=== PATIENT | female | born 1995 | race Caucasian/White ===

== ENCOUNTER → 2021-08-29 | Outpatient (REF) | payer MEDICAID | LOC: M LAB REF 17:22 → EEVIPCON 17:22 | PROVIDERS: ATTEND Otolaryngology | DX: H60.8X1 Other otitis externa, right ear (principal) ==

== ENCOUNTER → 2021-09-13 | Outpatient (CLI) | payer MEDICAID ==
--- NOTE | 2021-09-14 10:32 | REP ---
INDICATION: HEARING LOSS UNSPEC. COMPARISON: None. TECHNIQUE: High-resolution axial CT of the temporal bones is performed with coronal reconstructions. FINDINGS: The inner ear structures are unremarkable bilaterally. The internal auditory canals are symmetric and unremarkable. The cochlea and vestibular system are visualized bilaterally and are unremarkable. Semicircular canals are normal in size and configuration. The vestibular aqueduct is unremarkable bilaterally. The cochlear aqueduct is identified bilaterally. The middle ear structures are unremarkable bilaterally. The ossicles are clearly identified and are unremarkable. The external ear structures are unremarkable. The scutum and tympanic membrane are identified and unremarkable bilaterally. The facial nerve demonstrates no gross abnormality bilaterally. The jugular foramen and carotid canal is unremarkable bilaterally. The right mastoid air cells are somewhat under developed with partial opacification. There is no bony erosion of the mastoid air cells bilaterally. IMPRESSION: The right mastoid air cells are somewhat under developed with partial opacification. Otherwise unremarkable temporal bone study. <Electronically signed by Stevie Mariee > 09/14/21 1023
== END ==
LOC: M RAD 15:14
PROVIDERS: ATTEND Otolaryngology
DX: H91.91 Unspecified hearing loss, right ear (principal); H94.81 Other specified disorders of right ear in diseases classified elsewhere